=== PATIENT | female | born 1960 | race Caucasian/White ===

== ENCOUNTER 2018-06-06 11:30 | Day surgery (SDC) | payer BC ==
[~2018-06-06] VITALS: Ht 165.1 cm; Wt 112.1 kg
[~2018-06-06 11:30] MED LIST: ALBU90OI6; ATOR20 PO; CITA20 PO; Calcium Carbon500 MG; Carbidopa-Levo1 EACH PO; DIVA500EC PO; Estring1 EACH; IRBHYD150 PO; Imitrex100 MG PO; LACTULOSE10 GM/15 M PO; METCAR500 PO; SIMV40 PO
[2018-06-06] MEDS ORDERED: CRANBERRY500 M1 PO (12:36)
[2018-06-06] MEDS ORDERED: Macrodantin50 MG PO (12:36)
--- NOTE | 2018-06-06 14:33 | NUR ---
06/06/18 1433 Malissa Curran DELAYED ENTRY 8422 RECIEVED REPORT FROM [facility].FRANCIS[facility]. PT TOLERATING PO FLUIDS. ICE AND ELEVATION IMPLEMENTED IN SDU. DC INSTRUCTIONS PROVIDED WITH MOTHER AT BEDSIDE. VSS. SLING SENT HOME WITH PT.
[2018-06-17] MEDS ORDERED: DIVA500ER PO (11:01)
[2018-06-17] MEDS ORDERED: ACET500 PO (11:03)
== END 2018-06-06 13:55 | disposition home or self-care (01) ==
LOC: ORSCSDS 11:30
PROVIDERS: Orthopaedic Surgery
PROC: 01N54ZZ Release Median Nerve, Percutaneous Endoscopic Approach (ICD-10-PCS; principal; 2018-06-06 12:15)
DX: G56.01 Carpal tunnel syndrome, right upper limb (principal); I10 Essential (primary) hypertension; J45.909 Unspecified asthma, uncomplicated; Z87.891 Personal history of nicotine dependence; Z79.899 Other long term (current) drug therapy
CPT/HCPCS: J0690; J2250; J3010; J7120

== ENCOUNTER 2018-06-24 11:56 | Day surgery (SDC) | payer BC ==
[~2018-06-24] VITALS: Ht 165.1 cm; Wt 111.7 kg
[~2018-06-24 11:56] MED LIST changes: +ACET500 PO; +CRANBERRY500 M1 PO; +DIVA500ER PO; +Macrodantin50 MG PO
== END 2018-06-24 14:56 | disposition home or self-care (01) ==
LOC: ORSCSDS 11:56
PROVIDERS: Internal Medicine Gastroenterology
PROC: 0DBE8ZX Excision of Large Intestine, Via Natural or Artificial Opening Endoscopic, Diagnostic (ICD-10-PCS; principal; 2018-06-24 13:45)
DX: Z12.11 Encounter for screening for malignant neoplasm of colon (principal); Z86.010 Personal history of colon polyps; K57.30 Diverticulosis of large intestine without perforation or abscess without bleeding; Z80.0 Family history of malignant neoplasm of digestive organs; Z87.891 Personal history of nicotine dependence; J45.909 Unspecified asthma, uncomplicated; Z79.899 Other long term (current) drug therapy
CPT/HCPCS: 88305; J7120

== ENCOUNTER → 2018-10-27 | Outpatient (CLI) | payer BC | END | disposition home or self-care (01) | LOC: LAB EV 09:49 → LAB SHORT 09:49 | DX: N39.0 Urinary tract infection, site not specified (principal) | CPT/HCPCS: 87086; 87147; 87186 ==

== ENCOUNTER → 2019-04-21 | Outpatient (CLI) | payer BC ==
[2019-04-23 13:07] LABS: HPV 16 Negative (Negative); HPV 18 Negative (Negative); HPV OTHER HR TYPES Negative (Negative)
== END | disposition home or self-care (01) ==
LOC: LAB 12:47 → LAB SHORT 12:47
PROVIDERS: Nurse Practitioner Women's Health
DX: Z12.4 Encounter for screening for malignant neoplasm of cervix (principal)
CPT/HCPCS: 87624; G0123

== ENCOUNTER 2021-07-08 07:56 | Day surgery (SDC) | payer BC ==
[~2021-07-08] VITALS: Ht 165.1 cm; Wt 69.6 kg
[~2021-07-08 07:56] MED LIST changes: +BACL10 PO; +CARBIDOPA-LEVO1 EA16 PO; +ESCI10 PO; +MONT10T PO
[2021-07-08] MEDS ORDERED: Acetaminophen650 M1 (08:40)
== END 2021-07-08 11:37 | disposition home or self-care (01) ==
LOC: ORSCSDS 07:56
PROVIDERS: Podiatrist Foot & Ankle Surgery
PROC: 0SGJ04Z Fusion of Left Tarsal Joint with Internal Fixation Device, Open Approach (ICD-10-PCS; principal; 2021-07-08 09:15)
DX: M21.612 Bunion of left foot (principal); Z87.891 Personal history of nicotine dependence; J45.909 Unspecified asthma, uncomplicated
CPT/HCPCS: A9270; C1776; J0171; J3370; J7050; J7120

== ENCOUNTER 2023-07-30 07:34 | Day surgery (SDC) | payer BC ==
[~2023-07-30] VITALS: Ht 165.1 cm; Wt 79.9 kg
[~2023-07-30 07:34] MED LIST changes: +Acetaminophen650 M1
[2023-07-30] MEDS ORDERED: Lactated Ringer's 1,000 ML IV ONE ×2 (08:25→08:42)
[2023-07-30] MEDS ORDERED: propofoL 50 ML IV ONE (08:25)
[2023-07-30 09:41] VITALS: BP 121/56
== END 2023-07-30 09:56 | disposition home or self-care (01) ==
LOC: ORSCSDS 07:34
PROVIDERS: Internal Medicine Gastroenterology
PROC: 0DJD8ZZ Inspection of Lower Intestinal Tract, Via Natural or Artificial Opening Endoscopic (ICD-10-PCS; principal; 2023-07-30 09:00)
DX: Z12.11 Encounter for screening for malignant neoplasm of colon (principal); Z86.010 Personal history of colon polyps; Z80.0 Family history of malignant neoplasm of digestive organs; K57.30 Diverticulosis of large intestine without perforation or abscess without bleeding; J45.909 Unspecified asthma, uncomplicated; Z87.891 Personal history of nicotine dependence; Z98.84 Bariatric surgery status; Z68.30 Body mass index [BMI] 30.0-30.9, adult; Z79.899 Other long term (current) drug therapy
CPT/HCPCS: J2704; J7120